=== PATIENT | female | born 2005 | race Caucasian/White ===

== ENCOUNTER 2024-03-29 20:25 | Emergency (ER) | payer OTHER, SELFPAY ==
--- NOTE | ~2024-03-29 | XR_ITS ---
CHEST RADIOGRAPH CLINICAL HISTORY: Chronic cough . COMPARISON: None available TECHNIQUE: Single portable view of the chest. FINDINGS The cardiomediastinal silhouette is unremarkable. The lungs are clear. Visualized osseous structures and soft tissues are unremarkable. IMPRESSION: No focal infiltrate or effusion. Reviewed, dictated and finalized at location A. CLIPPER
[2024-03-29 20:29] VITALS: BP 158/108; PULSE 80; RESP 18; TEMP 36.5; O2SAT 99
--- NOTE | 2024-03-29 20:30 | ED_ITS ---
HPI - URI/Sore Throat General Chief Complaint: Upper Respiratory Infection Stated Complaint: upper respiratory Time Seen by Provider: 03/29/24 20:29 Source: patient and family Mode of arrival: ambulatory Limitations: no limitations History of Present Illness HPI Narrative: 19-year-old female presents to the ED with a 2 week history of -- cough which is productive of mucoid sputum -- intermittent vomiting. No fever or chills. No chest pain or shortness of breath. No sore throat. No nasal congestion. Patient's brother had similar symptoms which did not respond to antibiotics. Subsequently he received breathing treatments and steroids with resolution of symptoms. MD elicited complaint: cough Onset (ago): week(s) ( Two weeks) Consistency: constant Description of mucous: clear Able to tolerate fluids by mouth: No Exacerbating factors: nothing Relieving factors: nothing Associated symptoms: vomiting and diarrhea Treatments prior to arrival: none Related Data Allergies Allergy/AdvReac Type Severity Reaction Status Date / Time No Known Allergies Allergy Verified 03/29/24 20:50 Review of Systems Review of Systems: All systems reviewed & are unremarkable except as noted in HPI and below Constitutional: Constitutional: Reports as per HPI and Reports no additional constitutional complaints Eyes: Eyes: Reports as per HPI and Reports no additional eye complaints ENT: Reports system reviewed and no additional complaints, except as documented and Reports as per HPI Cardiovascular: Cardiovascular: Reports as per HPI and Reports no additional cardiovascular complaints Respiratory: Respiratory: Reports as per HPI, Reports no additional respiratory complaints and Reports cough Gastrointestinal: Gastrointestinal: Reports as per HPI, Reports no additional gastrointestinal complaints, Reports diarrhea, Reports nausea and Reports vomiting Genitourinary: Genitourinary: Reports no additional female genitourinary complaints Comments: patient stated that she is not sexually active and does not think that urine pregnancies necessary. Musculoskeletal: Musculoskeletal: Reports no additional musculoskeletal complaints and Reports as per HPI Integumentary/Breasts: Skin/Breast: Reports system reviewed and no additional complaints, except as docu and Reports as per HPI Neurologic: Reports system reviewed and no additional complaints, except as documented and Reports as per HPI Psychiatric: Psychiatric: Reports no additional psychiatric complaints and Reports as per HPI Endocrine: Endocrine: Reports no additional endocrine complaints and Reports as per HPI Hematologic/Lymphatic: Hematologic/Lymphatic: Reports no additional hematologic/lymphatic complaints and Reports as per HPI Allergic/Immunologic: Allergic/Immunologic: Reports no additional allergic/immunologic complaints and Reports as per HPI Exam Narrative: Blood pressure is 158/108 afebrile with. With a respiratory rate of 18. Oxygen saturation of 99% on room air. Const: General: no acute distress Nutritional Appearance: well nourished Orientation/consciousness: patient oriented x3 Limitations: no limitations HENMT: Head: normal to inspection Ears: external ears normal Face/Nose/Sinus: Normal external nose present Face and sinus: normal facial exam Mouth: Yes Normal oral and palatal mucosa present Throat: posterior oropharynx normal Eyes: Conjunctivae: conjunctivae normal Pupils: Equal, round and reactive pupils present EOM: EOMs intact bilaterally Direct Ophthalmoscopy: no photophobia Neck: Neck: normal visual inspection, no lymphadenopathy and no meningeal signs Chest: Chest palpation & inspection: normal inspection of the chest Resp: Effort & Inspection: normal respiratory effort Auscultation: clear to auscultation bilaterally Cardio: Rate: regular rate Rhythm: regular rhythm GI: GI Palp: Yes Soft to palpation Auscultation: normal bowel sounds Other: No tenderness/rigidity /rebound. : General: Yes no CVA tenderness Back/Spine/Pelvis: Back: no CVA tenderness Skin: General skin exam: normal color Rashes: no rashes Neuro: General: patient oriented x3, moves all extremities, no meningeal signs, no focal motor deficits and CN's II-XI intact bilaterally Cranial nerves: Yes Nystagmus not present Speech: normal speech Extrem: General: normal to inspection and no clubbing, cyanosis or edema Psych: Mental Status: mental status grossly normal Affect: normal affect Attitude: cooperative Course Course Emergency Course: nonproductive cough a negative strep/RSV/ COVID/influenza and a negative chest x-ray. patient received DuoNeb treatment and Solu-Medrol 40 with remarkable improvement of her cough. Vital Signs Vital signs: Vital Signs Oxygen Delivery Room Air 03/29/24 20:25 Temperature 36.5 C 03/29/24 20:29 Pulse Rate 89 03/29/24 21:31 Respiratory Rate 198 H 03/29/24 21:31 Blood Pressure 139/89 03/29/24 21:31 Pulse Oximetry 97 03/29/24 21:31 Oxygen Delivery Room Air 03/29/24 21:31 Procedures Laceration Laceration 1: Site: other ( right sole) ====== Skin Level ====== ====== Subcutaneous Layer ====== ====== Muscle Layer ====== ====== Tendon Layer ====== MDM - URI/Sore Throat MDM Narrative Medical decision making narrative: Allergic bronchitis Differential Diagnosis Differential diagnosis: Likely bronchitis Medical Records Attestation: I reviewed the patient's medical records. Lab Data Attestation: I reviewed the patient's lab results. 03/29/24 21:00 03/29/24 21:00 Labs: Lab Results 03/29/24 03/29/24 Range/Units 21:00 21:40 WBC 10.2 (4.8-10.8) K/mm3 RBC 5.17 (4.20-5.40) M/mm3 Hgb 13.4 (12.0-15.0) g/dL Hct 40.9 (35.0-49.0) % MCV 79.1 (78.0-102.0) fL MCH 25.9 L (27.0-31.0) pg MCHC 32.8 (32-36) g/dL RDW 12.7 (11.6-14.4) % Plt Count 315 (150-420) K/mm3 MPV 10.1 (9.2-11.8) fl Immature Gran % (Auto) 0.4 H (0.0-0.0) % Neut % (Auto) 52.6 (50.0-70.0) % Lymph % (Auto) 39.1 (18.0-42.0) % [place] % (Auto) 6.7 (2.0-11.0) % Eos % (Auto) 0.6 L (1.0-6.0) % Baso % (Auto) 0.6 (0.0-1.0) % Lymph # (Auto) 3.98 (1.10-4.50) K/mm3 [place] # (Auto) 0.68 (0.10-0.90) K/mm3 Eos # (Auto) 0.06 (0.02-0.50) K/mm3 Baso # (Auto) 0.06 (0.00-0.10) K/mm3 Abs Immat Gran (auto) 0.04 H (0.00-0.00) K/mm3 Absolute Neuts (auto) 5.35 (1.70-7.20) K/mm3 Absolute Nucleated RBC 0.00 (0.00-0.00) K/mm3 Nucleated RBC % 0.0 (0-0.0) % Sodium 143 (136-145) mmol/L Potassium 3.5 (3.5-5.1) mmol/L Chloride 104 (98-108) mmol/L Carbon Dioxide 28 (21-32) mmol/L Anion Gap 11 (4-12) mmol/L BUN 14 (7-18) mg/dL Creatinine 0.91 (0.55-1.02) mg/dL Estim Creat Clear Calc Not Reportable Estimated GFR > 60 (59 - ) Glucose 116 H (70-99) mg/dL Calculated Osmolality 297 H (285-295) mOsm/kg Calcium 9.0 (8.5-10.1) mg/dL Total Bilirubin 0.4 (0.00-1.00) mg/dL AST 19 (15-37) U/L ALT 25 (14-59) U/L Alkaline Phosphatase 81 (46-116) U/L Total Protein 6.9 (6.4-8.2) g/dL Albumin 3.5 (3.4-5.0) g/dL Urine Color Light yellow (Yellow) Urine Appearance Clear (Clear) Urine pH 6.0 (5.0-8.0) Ur Specific [place] 1.020 (1.010-1.020) Urine Protein Negative (Negative) Urine Glucose (UA) Negative (Negative) Urine Ketones Negative (Negative) Ur Blood (Man) Negative (Negative) Urine Nitrate Negative (Negative) Urine Bilirubin Negative (Negative) Urine Urobilinogen 0.2 (0.2-1.0) mg/dL Leukocyte Esterase Rfl 2+ H (Negative) ISIDORO/UL Urine RBC 0-2 (0-2) /hpf Urine WBC 0-3 (0-3) /hpf Ur Squamous Epith Cells Few (Few) /hpf Urine Bacteria 1+ H (None) /hpf Influenza A (RT-PCR) Negative (Negative) Influenza B (RT-PCR) Negative (Negative) RSV (RT-PCR) Negative (Negative) SARS-CoV-2 RNA (RT-PCR) Negative (Negative) Discharge Plan Discharge Clinical Impression: Allergic bronchitis Qualifiers: Asthma severity: unspecified severity Asthma complication type: with acute exacerbation Qualified Code(s): J45.901 - Unspecified asthma with (acute) exacerbation Patient Disposition: Home, Self-Care Condition: Stable Instructions: Antibiotic Form, How to Use a Nebulizer (DC), Asthma Attack in Children (ED) Patient Language: Faroese Prescriptions: New prednisone 20 mg tablet 20 mg PO BID Qty: 10 0RF Follow-up/Referrals: Rex Gilmore MD [Primary Care Provider] - Time of Disposition: 22:07
--- NOTE | 2024-03-29 20:45 | PC.NURSE ---
xray at the bedside
--- NOTE | 2024-03-29 20:48 | PC.NURSE ---
xray at the bedside
--- NOTE | 2024-03-29 20:50 | PC.NURSE ---
lab at the bedside
[2024-03-29 21:04] LABS: Basophils Absolute Auto 0.06 K/mm3 (0.00-0.10); Basophils Percent Auto 0.6 % (0.0-1.0); Eosinophils Absolute Auto 0.06 K/mm3 (0.02-0.50); Eosinophils Percent Auto 0.6 % (1.0-6.0); Hematocrit 40.9 % (35.0-49.0); Hemoglobin 13.4 g/dL (12.0-15.0); Immature Granulocyte Absolute 0.04 K/mm3 (0.00-0.00); Immature Granulocyte Percent A 0.4 % (0.0-0.0); Lymphocytes Absolute Auto 3.98 K/mm3 (1.10-4.50); Lymphocytes Percent Auto 39.1 % (18.0-42.0); Mean Corpuscular HGB Conc 32.8 g/dL (32-36); Mean Corpuscular Hemoglobin 25.9 pg (27.0-31.0); Mean Corpuscular Volume 79.1 fL (78.0-102.0); Mean Platelet Volume 10.1 fl (9.2-11.8); Monocytes Absolute Auto 0.68 K/mm3 (0.10-0.90); Monocytes Percent Auto 6.7 % (2.0-11.0); Neutrophils Absolute Auto 5.35 K/mm3 (1.70-7.20); Neutrophils Percent Auto 52.6 % (50.0-70.0); Platelet Count Result 315 K/mm3 (150-420); Red Blood Count 5.17 M/mm3 (4.20-5.40); Red Cell Distribution Width 12.7 % (11.6-14.4); White Blood Count 10.2 K/mm3 (4.8-10.8)
[2024-03-29 21:20] LABS: Alanine Aminotransferase 25 U/L (14-59); Albumin Level 3.5 g/dL (3.4-5.0); Alkaline Phosphatase 81 U/L (46-116); Anion Gap 11 mmol/L (4-12); Aspartate Amino Transferase 19 U/L (15-37); Bilirubin,Total 0.4 mg/dL (0.00-1.00); Blood Urea Nitrogen 14 mg/dL (7-18); Carbon Dioxide 28 mmol/L (21-32); Chloride 104 mmol/L (98-108); Estimated Glomerular Filt Rate > 60; Glucose 116 mg/dL (70-99); Osmolality Calculated 297 mOsm/kg (285-295); Potassium 3.5 mmol/L (3.5-5.1); Sodium 143 mmol/L (136-145); Total Protein 6.9 g/dL (6.4-8.2)
[2024-03-29 21:31] VITALS: BP 139/89; PULSE 89; RESP 198; O2SAT 97
[2024-03-29 21:40] LABS: Influenza A QL RT-PCR Negative (Negative); Influenza B QL RT-PCR Negative (Negative); RSV RNA, RT-PCR Negative (Negative); SARS-CoV-2 RNA PCR Negative (Negative)
--- NOTE | 2024-03-29 21:42 | PC.NURSE ---
urine taken to the lab by chris walden
[2024-03-29 21:43] LABS: Add Urine Microscopic? YES; Appearance Urine Clear (Clear); Bilirubin Urine Negative (Negative); Blood Urine Negative (Negative); Color Urine Light Yellow (Yellow); Glucose Urine UA Negative (Negative); Ketones Urine Negative (Negative); Leukocyte Esterase Ur 2+ LEU/UL (Negative); Nitrate Urine Negative (Negative); Protein Urine Negative (Negative); Urobilinogen Urine 0.2 mg/dL (0.2-1.0)
[2024-03-29] MEDS: methylPREDNISolone SOD SUCC 125 MG VIAL 40 MG IM (21:46)
[2024-03-29] MEDS: IPRATROPIUM 0.5 MG/ALBUTEROL SULFATE 2.5 MG AMPUL.NEB 3 ML INHALATION (21:46)
[2024-03-29 21:49] LABS: Bacteria Urine 1+ /hpf; RBC Urine 0-2 /hpf (0-2); Squamous Epithelial Cell Urine Few /hpf (Few); WBC Urine 0-3 /hpf (0-3)
[2024-03-29] MEDS: ALBUTEROL SULFATE (*SP) INHALER 2 PUFF INHALATION (22:21)
--- NOTE | 2024-04-01 13:12 | PC.NURSE ---
FINAL URINE CULTURE REPORT: NO GROWTH, NO FURTHER ACTION OR TREATMENT NEEDED
== END 2024-03-29 22:30 | disposition home or self-care (01) ==
PROVIDERS: Emergency Provider Internal Medicine Critical Care Medicine; PCP Emergency Medicine
DX: J45.901 Unspecified asthma with (acute) exacerbation (principal); Z20.822 Contact with and (suspected) exposure to COVID-19
CPT/HCPCS: 36415; 71045; 80053; 81001; 85025; 87086; 87637; 96372; 99283; A9270; J2919

== ENCOUNTER 2024-04-13 20:19 | Emergency (ER) | payer OTHER, SELFPAY ==
[2024-04-13 20:19] VITALS: BP 136/89; PULSE 103; RESP 16; TEMP 36.2; O2SAT 98
--- NOTE | 2024-04-13 20:24 | PC.NURSE ---
DR LIU AT THE BEDSIDE
--- NOTE | 2024-04-13 20:27 | ED.URI ---
HPI - URI/Sore Throat General Chief Complaint: Upper Respiratory Infection Stated Complaint: Upper Respiratory Time Seen by Provider: 04/13/24 20:21 Source: patient and family Mode of arrival: ambulatory History of Present Illness HPI Narrative: this is a 19-year-old female with a cough and mild congestion with no audible wheezing no shortness of breath no fever chills does have some sinus congestion and drainage. MD elicited complaint: cough Onset (ago): week(s) Consistency: constant Severity: mild Related Data Allergies Allergy/AdvReac Type Severity Reaction Status Date / Time No Known Allergies Allergy Verified 03/29/24 20:50 Review of Systems Review of Systems: All systems reviewed & are unremarkable except as noted in HPI and below PMFSH Past Medical History Medical History Patient denies medical problems Exam Const: General: healthy appearing and no acute distress Nutritional Appearance: well nourished Orientation/consciousness: patient oriented x3 Limitations: no limitations HENMT: Head: normal to inspection Eyes: Conjunctivae: conjunctivae normal Neck: Neck: normal visual inspection Chest: Chest palpation & inspection: normal inspection of the chest Cardio: Rate: regular rate Rhythm: regular rhythm GI: GI Palp: Yes Soft to palpation Auscultation: normal bowel sounds Skin: General skin exam: normal color Rashes: no rashes Neuro: General: patient oriented x3 and moves all extremities Extrem: General: normal to inspection Course Course Emergency Course: dose of p.o. Zithromax administered for bronchial congestion. Advised to continue current medical regimen. Critical Care Time Critical Care Time Critical Care Time: No Discharge Plan Discharge Clinical Impression: Bronchitis Patient Disposition: Home, Self-Care Condition: Stable Instructions: Antibiotic Form, Acute Bronchitis (ED) Additional Instructions: take medication as prescribed and follow-up with primary as scheduled. Prescriptions: New azithromycin [Zithromax Z-Joseph] 250 mg tablet See Rx Instructions .ROUTE .COMPLEX Qty: 6 0RF Rx Instructions: For 250 mg dose pack: take 500 mg today (day 1), then 250 mg for 4 days (days 2-5) methylprednisolone [Medrol (Joseph)] 4 mg tablets,dose pack See Rx Instructions .ROUTE .COMPLEX Qty: 21 0RF Rx Instructions: for 6 days benzonatate 100 mg capsule 100 mg PO TID Qty: 20 0RF No Action prednisone 20 mg tablet 20 mg PO BID Qty: 10 0RF Follow-up/Referrals: Rex Gilmore MD [Primary Care Provider] -
--- NOTE | 2024-04-13 20:30 | PC.NURSE ---
PATIENT AND FAMILY LAUGING AND TALKING LOUD.
[2024-04-13] MEDS: AZITHROMYCIN 250 MG TABLET 500 MG PO (20:34)
[2024-04-13 21:02] VITALS: BP 130/82; PULSE 94; RESP 18; O2SAT 99
== END 2024-04-13 21:02 | disposition home or self-care (01) ==
LOC: CHSED 20:32
PROVIDERS: Emergency Provider Emergency Medicine; PCP Emergency Medicine
DX: J40 Bronchitis, not specified as acute or chronic (principal)
CPT/HCPCS: 99283; A9270

== ENCOUNTER 2024-06-18 00:15 | Emergency (ER) | payer OTHER, SELFPAY ==
[2024-06-18 00:15] VITALS: BP 141/94; PULSE 105; RESP 18; TEMP 36.4; O2SAT 100
--- NOTE | 2024-06-18 00:24 | PC.NURSE ---
DR LIU AT THE BEDSIDE
--- NOTE | 2024-06-18 00:27 | ED_ITS ---
HPI - URI/Sore Throat General Chief Complaint: Upper Respiratory Infection Stated Complaint: cough Source: patient Mode of arrival: ambulatory Limitations: no limitations History of Present Illness HPI Narrative: this is a 19-year-old female with a 3 month history of cough with nasal congestion sinus pressure frontal and maxillary sinuses with no fever chills cough is nonproductive with no audible wheezing no nausea vomiting no chest pain. MD elicited complaint: cough, nasal congestion and sinus pain Onset (ago): month(s) Consistency: intermittent Severity: mild Description of mucous: clear Related Data Allergies Allergy/AdvReac Type Severity Reaction Status Date / Time No Known Allergies Allergy Verified 06/18/24 00:24 Review of Systems Review of Systems: All systems reviewed & are unremarkable except as noted in HPI and below PMFSH Past Medical History Medical History Patient denies medical problems Exam Const: General: healthy appearing and no acute distress Nutritional Appearance: well nourished Orientation/consciousness: patient oriented x3 Limitations: no limitations HENMT: Other: Frontal or maxillary sinus tenderness of palpation Eyes: Conjunctivae: conjunctivae normal EOM: EOMs intact bilaterally Neck: Neck: normal visual inspection, no lymphadenopathy and no meningeal signs Chest: Chest palpation & inspection: normal inspection of the chest Resp: Effort & Inspection: normal respiratory effort Auscultation: clear to auscultation bilaterally Cardio: Rate: regular rate Rhythm: regular rhythm GI: GI Palp: Yes Soft to palpation Course Course Emergency Course: impression was sinus pressure with a chronic nonproductive cough for the last 3 months start on Claritin and Flonase. Vital Signs Vital signs: Vital Signs Temperature 36.4 C 06/18/24 00:15 Pulse Rate 105 H 06/18/24 00:15 Respiratory Rate 18 06/18/24 00:15 Blood Pressure 141/94 H 06/18/24 00:15 Pulse Oximetry 100 06/18/24 00:15 Oxygen Delivery Room Air 06/18/24 00:15 Temperature 36.4 C 06/18/24 00:15 Pulse Rate 105 H 06/18/24 00:15 Respiratory Rate 18 06/18/24 00:15 Blood Pressure 141/94 H 06/18/24 00:15 Pulse Oximetry 100 06/18/24 00:15 Oxygen Delivery Room Air 06/18/24 00:15 Critical Care Time Critical Care Time Critical Care Time: No Discharge Plan Discharge Clinical Impression: Sinusitis chronic, frontal Patient Disposition: Home, Self-Care Condition: Stable Instructions: Antibiotic Form, Sinusitis (ED) Additional Instructions: take medication as prescribed and follow up with primary within 1 week further evaluation treatment. Patient Language: Japanese Prescriptions: New Flonase Sensimist 27.5 mcg/actuation spray,suspension 2 spray intranasal DAILY Qty: 5.9 0RF Rx Instructions: into each nostril loratadine [Claritin] 10 mg tablet 10 mg PO DAILY Qty: 14 0RF Follow-up/Referrals: Rex Gilmore MD [Primary Care Provider] - Time of Disposition: 00:31
== END 2024-06-18 00:44 | disposition home or self-care (01) ==
PROVIDERS: Emergency Provider Emergency Medicine; PCP Emergency Medicine
DX: J32.1 Chronic frontal sinusitis (principal)
CPT/HCPCS: 99283

== ENCOUNTER 2024-08-21 21:50 | Emergency (ER) | payer OTHER, SELFPAY ==
[2024-08-21] VITALS (14 sets, daily range): BP systolic 129–153; BP diastolic 72–102; PULSE 74–96; RESP 16–26; TEMP 36.2; O2SAT 99–100
--- NOTE | ~2024-08-21 | CT_ITS ---
History: Syncope PROCEDURE: CT head without contrast. COMPARISON: None TECHNIQUE: Axial imaging of the head performed from the skull base to the vertex without IV contrast. Sagittal a nd coronal reformations obtained. DLP: 605 mGy-cm FINDINGS: The ventricles are normal in size, shape and position. There is no mass, mass effect or midline shift. There is no abnormal extra-axial fluid collection or intracranial hemorrhage. Visualized paranasal sinuses are clear. The mastoid air cells are well aerated. No acute displaced fractures within the overlying cranium. Impression: No acute intracranial hemorrhage or suspicious mass effect. Reviewed, dictated and finalized at location A. Impression: No acute intracranial hemorrhage or suspicious mass effect.
--- NOTE | ~2024-08-21 | XR_ITS ---
CHEST RADIOGRAPH CLINICAL HISTORY: Syncope . COMPARISON: 03/29/2024 TECHNIQUE: Single portable view of the chest. FINDINGS The cardiomediastinal silhouette is unremarkable. The lungs are clear. IMPRESSION: No focal infiltrate or effusion. Reviewed, dictated and finalized at location A.
--- NOTE | 2024-08-21 22:14 | ED_ITS ---
HPI - Syncope General Chief Complaint: Syncope Stated Complaint: passing out Time Seen by Provider: 08/21/24 21:58 Source: patient and family Mode of arrival: ambulatory Limitations: no limitations History of Present Illness HPI narrative: 19 years old white female came by private car with her mom from home with syncope. Patient's mom reports that patient had syncope 4 times over the last 3 hours. Each time patient pass out for at least 2 minutes then back to normal. Patient asked her mom why I am keep passing out. Currently patient is asymptomatic Patient denies any fever, chills, nausea, vomiting, headache, chest pain, shortness of breath, back pain, abdominal pain, urinary symptoms, vaginal bleeding or discharge or similar symptoms in the past. Related Data Allergies Allergy/AdvReac Type Severity Reaction Status Date / Time No Known Allergies Allergy Verified 08/21/24 21:55 Review of Systems Review of Systems: All systems reviewed & are unremarkable except as noted in HPI and below PMFSH Past Medical History Medical History Patient denies medical problems Exam Narrative: General appearance: Well-developed, well-nourished Skin: Normal color Head: Normocephalic, nontraumatic Eyes: Clear conjunctiva ENT: Oropharynx normal, ears normal, nose normal Neck: Supple, nontender Chest and respiratory: Airway patent, no respiratory distress, no accessory muscle use Heart: Regular rate/rhythm Abdomen: Soft, nontender, no organomegaly, quiet bowel sounds Vascular: Normal peripheral pulses, normal capillary refill. Musculoskeletal: Normal range of motion, nontender back Neurologic: Alert and oriented ?3, [employer] is normal as tested, no gross motor deficit Course Vital Signs Vital signs: Vital Signs Pulse Rate 79 08/21/24 21:50 Temperature 36.2 C L 08/21/24 21:51 Pulse Rate 74 08/21/24 21:51 Respiratory Rate 18 08/21/24 21:51 Blood Pressure 142/85 H 08/21/24 21:51 Pulse Oximetry 100 08/21/24 21:51 Oxygen Delivery Room Air 08/21/24 21:51 MDM - Syncope MDM Narrative Medical decision making narrative: Patient came to the ED with passing out at least 4 times over the last 3 hours prior to arrival. Vital signs showing blood pressure 142/85 otherwise within normal limit Physical examination is unremarkable Differential diagnosis include anxiety like symptoms, orthostatic hypotension, cardiac arrhythmia, seizure like activities, underlying heart condition, certain medications/ patient is not on any medicines Blood workup today includes CBC, CMP, TSH, alcohol level, showed insignificant abnormality Urine drug screen showed insignificant abnormalities Urinalysis showed no evidence of infection CT head without contrast showed no acute abnormality Chest x-ray showed no acute abnormalities Patient declined hospitalization and would like to sign AMA I declare that I have personally explained to the patient the risks and consequences involved in leaving this facility at this time. the benefits of continued treatment and/or hospitalization. And the alternatives. If any. to continued treatment and/or hospitalization. if applicable.I have not identified any psychosis, drugs, mental illness, or medical illness that alters decision- making capacity (reasoning abilities ). Differential Diagnosis Differential diagnosis: Likely other ( as above) Medical Records Attestation: I reviewed the patient's medical records. Lab Data Attestation: I reviewed the patient's lab results. ECG Data EKG #1: Attestation: I personally reviewed and interpreted this ECG as follows: ECG completion date: 08/21/24 Interpretation: normal sinus rhythm at 77 beats per minute, poor R-wave progression, abnormal EKG Critical Care Time Critical Care Time Critical Care Time: No Discharge Plan Discharge Clinical Impression: Syncope Patient Disposition: Left Against Medical Advice Condition: Guarded Prognosis Patient Language: Indonesian Follow-up/Referrals: Rex Gilmore MD [Primary Care Provider] -
--- NOTE | 2024-08-21 22:14 | ECG_ITS ---
Test Date: 2024-08-21 22:22:40 Measurements Intervals [place] Rate: 77 P: 22 ME: 145 QRS: 15 QRSD: 90 T: 10 QT: 341 QTc: 388 Interpretive Statements SINUS RHYTHM WITH MARKED SINUS ARRHYTHMIA BASELINE ARTIFACT- I, II, III, AVR, AVL, AVF, V4-V6 NORMAL ECG No previous ECG available for comparison Electronically Signed On 08-22-2024 06:17:20 CDT by Hilton Monet D.O.
[2024-08-21 22:38] LABS: Add Urine Microscopic? YES; Appearance Urine Clear (Clear); Bilirubin Urine Negative (Negative); Blood Urine Negative (Negative); Color Urine Light Yellow (Yellow); Glucose Urine UA Negative (Negative); Ketones Urine Negative (Negative); Leukocyte Esterase Ur 2+ LEU/UL (Negative); Nitrate Urine Negative (Negative); Protein Urine Negative (Negative); Urobilinogen Urine 0.2 mg/dL (0.2-1.0)
[2024-08-21 22:39] LABS: Basophils Absolute Auto 0.08 K/mm3 (0.00-0.10); Basophils Percent Auto 0.9 % (0.0-1.0); Eosinophils Absolute Auto 0.09 K/mm3 (0.02-0.50); Hemoglobin 13.7 g/dL (12.0-15.0); Immature Granulocyte Absolute 0.02 K/mm3 (0.00-0.00); Immature Granulocyte Percent A 0.2 % (0.0-0.0); Lymphocytes Absolute Auto 2.33 K/mm3 (1.10-4.50); Lymphocytes Percent Auto 25.8 % (18.0-42.0); Mean Corpuscular HGB Conc 32.6 g/dL (32-36); Mean Corpuscular Hemoglobin 25.8 pg (27.0-31.0); Mean Corpuscular Volume 79.1 fL (78.0-102.0); Mean Platelet Volume 10.8 fl (9.2-11.8); Monocytes Absolute Auto 0.51 K/mm3 (0.10-0.90); Monocytes Percent Auto 5.6 % (2.0-11.0); Neutrophils Percent Auto 66.5 % (50.0-70.0); Platelet Count Result 262 K/mm3 (150-420); Red Blood Count 5.31 M/mm3 (4.20-5.40); Red Cell Distribution Width 12.7 % (11.6-14.4)
--- NOTE | 2024-08-21 22:45 | PC.NURSE ---
ERP aware of pt's vitals. No new orders.
[2024-08-21 22:46] LABS: Pregnancy On Board Control Positive; Urine Pregnancy Test Negative
[2024-08-21 22:49] LABS: Amphetamine Screen Urine Negative (Negative); Barbiturate Screen Urine Negative (Negative); Benzodiazepines Screen Urine Negative (Negative); Cannabinoid Screen Urine Negative (Negative); Cocaine Screen Urine Negative (Negative); Methadone Screen Urine Negative (Negative); Opiate Screen Urine Negative (Negative); Phencyclidine Screen Urine Negative (Negative)
[2024-08-21 22:51] LABS: Bacteria Urine Trace /hpf; RBC Urine 0-2 /hpf (0-2); Squamous Epithelial Cell Urine Few /hpf (Few)
[2024-08-21 23:02] LABS: Alanine Aminotransferase 31 U/L (14-59); Albumin Level 4.3 g/dL (3.4-5.0); Alkaline Phosphatase 107 U/L (46-116); Anion Gap 10 mmol/L (4-12); Aspartate Amino Transferase 15 U/L (15-37); Bilirubin,Total 0.4 mg/dL (0.00-1.00); Blood Urea Nitrogen 14 mg/dL (7-18); Calcium 9.6 mg/dL (8.5-10.1); Carbon Dioxide 27 mmol/L (21-32); Chloride 103 mmol/L (98-108); Estimated Glomerular Filt Rate > 60; Glucose 111 mg/dL (70-99); Osmolality Calculated 291 mOsm/kg (285-295); Potassium 4.5 mmol/L (3.5-5.1); Sodium 140 mmol/L (136-145); Thyroid Stimulating Hormone 4.07 uIU/mL (0.36-3.74); Total Protein 8.1 g/dL (6.4-8.2)
[2024-08-21 23:08] LABS: Ethanol < 3 mg/dL (0-6)
--- NOTE | 2024-08-24 12:25 | PC.NURSE ---
Final urine culture report; mixed genital verónica isolated, no further organism identified. no further action or treatment needed per ERP. Dr. Odom.
== END 2024-08-21 23:30 | disposition left against medical advice (07) ==
PROVIDERS: Emergency Provider Emergency Medicine; PCP Emergency Medicine
DX: R55 Syncope and collapse (principal)
CPT/HCPCS: 36415; 70450; 71045; 80053; 80307; 81001; 81025; 82077; 84443; 85025; 87086; 93005; 99284

== ENCOUNTER 2024-12-05 14:38 | Emergency (ER) | payer OTHER, SELFPAY ==
[2024-12-05 14:38] VITALS: BP 135/94; PULSE 64; RESP 16; TEMP 36.7; O2SAT 98
--- NOTE | 2024-12-05 14:52 | ED.SKABFB ---
HPI - Skin/Abscess/Foreign Bdy General Chief complaint: Skin/Abscess/Foreign Body Stated complaint: wound behind right ear Time Seen by Provider: 12/05/24 14:52 Source: patient and family Mode of arrival: ambulatory Limitations: no limitations History of Present Illness HPI narrative: Patient is a 19-year-old female with a right posterior neck wound over the past 3 days. Patient has been picking at the area and trying to pop the skin with her friends. They used a sharp object to work at this area over the last couple days. Shots are up-to-date. complaint: abscess/boil Onset (ago): day(s) ( Three) Tetanus up to date: yes Location: neck ( right posterior) Severity: mild Severity scale (1-10): 3 Quality: burning and sharp Pain Consistency: constant Relieving factors: none Exacerbating factors: palpation and movement Context: other ( patient has a right posterior neck rash / wound over the past 3 days with pain and attempted to repair on her own at home) Associated symptoms: denies other symptoms Treatments prior to arrival: attempted to drain pus at home Related Data Allergies Allergy/AdvReac Type Severity Reaction Status Date / Time No Known Allergies Allergy Verified 12/05/24 14:50 Review of Systems Review of Systems: All systems reviewed & are unremarkable except as noted in HPI and below Constitutional: Constitutional: Reports no additional constitutional complaints Eyes: Eyes: Reports no additional eye complaints ENT: Reports system reviewed and no additional complaints, except as documented Cardiovascular: Cardiovascular: Reports no additional cardiovascular complaints Respiratory: Respiratory: Reports no additional respiratory complaints Gastrointestinal: Gastrointestinal: Reports no additional gastrointestinal complaints Genitourinary: Genitourinary: Reports no additional female genitourinary complaints Musculoskeletal: Musculoskeletal: Reports no additional musculoskeletal complaints Integumentary/Breasts: Skin/Breast: Reports system reviewed and no additional complaints, except as docu Neurologic: Reports system reviewed and no additional complaints, except as documented Psychiatric: Psychiatric: Reports no additional psychiatric complaints Endocrine: Endocrine: Reports no additional endocrine complaints Hematologic/Lymphatic: Hematologic/Lymphatic: Reports no additional hematologic/lymphatic complaints Allergic/Immunologic: Allergic/Immunologic: Reports no additional allergic/immunologic complaints PMFSH Past Medical History Medical History Patient denies medical problems Exam Const: General: healthy appearing Nutritional Appearance: well nourished Orientation/consciousness: patient oriented x3 HENMT: Head: normal to inspection Ears: external ears normal Face/Nose/Sinus: Normal external nose present Eyes: Conjunctivae: conjunctivae normal Pupils: Equal, round and reactive pupils present EOM: EOMs intact bilaterally Neck: Neck: normal visual inspection Chest: Chest palpation & inspection: normal inspection of the chest Resp: Effort & Inspection: normal respiratory effort and not labored Auscultation: clear to auscultation bilaterally and no crackles Cardio: Rate: regular rate Rhythm: regular rhythm Heart sounds: no murmurs GI: Inspection: non-distended GI Palp: Yes Soft to palpation and No Tenderness to palpation present (GI) Auscultation: normal bowel sounds : General: Yes bladder normal to palpation Back/Spine/Pelvis: Back: no CVA tenderness Skin: General skin exam: normal color Rashes: no rashes Wounds: wound noted Other: right posterior neck somewhat lateral has a 0.5 cm nidus of infection with a follicular appearance and localized erythema minimally; node deep abscess for drainage and minimal signs of cellulitis Neuro: General: patient oriented x3 Cranial nerves: Yes Nystagmus not present Speech: normal speech Extrem: General: normal to inspection Psych: Mental Status: mental status grossly normal Affect: normal affect Attitude: cooperative Course Vital Signs Vital signs: Vital Signs Temperature 36.7 C 12/05/24 14:38 Pulse Rate 64 12/05/24 14:38 Respiratory Rate 16 12/05/24 14:38 Blood Pressure 135/94 H 12/05/24 14:38 Pulse Oximetry 98 12/05/24 14:38 Oxygen Delivery Room Air 12/05/24 14:38 Temperature 36.7 C 12/05/24 14:38 Pulse Rate 64 12/05/24 14:38 Respiratory Rate 16 12/05/24 14:38 Blood Pressure 135/94 H 12/05/24 14:38 Pulse Oximetry 98 12/05/24 14:38 Oxygen Delivery Room Air 12/05/24 14:38 MDM - Skin/Abscess/Foreign Bdy MDM Narrative Medical decision making narrative: patient is a 19-year-old female with a right posterior neck cellulitis/ folliculitis for the past 3 days. We will do Bactrim and Bactroban. Discharge Plan Discharge Clinical Impression: Folliculitis Cellulitis Qualifiers: Site of cellulitis: neck Qualified Code(s): L03.221 - Cellulitis of neck Patient Disposition: Home Condition: Stable Instructions: Antibiotic Form, Folliculitis (ED) Patient Language: Slovak Prescriptions: New sulfamethoxazole-trimethoprim [Bactrim DS] 800-160 mg tablet 1 tablet PO BID 7 Days Qty: 14 0RF mupirocin [Centany] 2 % ointment 1 applic topical BID Qty: 15 0RF Follow-up/Referrals: Rex Gilmore MD [Primary Care Provider] - Time of Disposition: 15:25
--- OUTSIDE RECORDS SUMMARY | 2024-12-05 15:19 | XMS_ITS | Continuity of Care Document ---
Author Organization [facility] Address [address] [address] [place] [address] Phone Care Team Providers Care Senior Grants Officer Name Role Phone Rex Gilmore MD Unavailable Unavailable Allergies, Adverse Reactions, Alerts Substance Reaction Status Criticality No Known Allergies Active No Inform ation Medications Medication Instructions Dosage Effective Dates (start - stop) Status Comments Synthroid 25 mcg tablet take 1 tablet by oral route every day 25 MCG - Active Synthroid 50 mcg tablet take 1 tablet by oral route every day 50 MCG - Active Procedures Procedure Date OFFICE/OUTPATIENT VISIT, EST OFFICE/OUTPATIENT VISIT, EST PREV VISIT, EST, AGE 18-39 PREV VISIT, EST, AGE 12-17 PREV VISIT, NEW, AGE 12-17 Advance Directives Directive Yes / No Effective Date File Name No Information Encounters Encounter Description Practice Location Reason(s) For Visit Diagnoses Date Provider Providers Copied on Encounter [facility], [address] [place], [id number], [place] tel:[phone] [facility] No Information Mando Goodman. [address], [address] [place], [place], [address] , [place]. tel:[phone] Referring Provider: Rex Gilmore, [address], [place], [place], [address]. tel:[phone] OFFICE/OUTPA TIENT VISIT, EST [facility], [address], [place], [place], [address], [place] tel:[phone] [facility] Medicine thyroid1 (chief complaint) HLP (chief complaint) HypothyroidismMixed hyperlipidemiaHyper glycemiaOther disorders of phosphorus metabolismProteinur ia 5 Mando Goodman. [address], [address], [place], [place], [address] , [place]. tel:[phone] Referring Provider: Rex Gilmore, [address], [place], [place], [address]. tel:[phone] OFFICE/OUTPA TIENT VISIT, EST [facility], [address], [place], [place], [address], [place] tel:[phone] [facility] Medicine thyroid1 (chief complaint) glucose (chief complaint) syncope1 (chief complaint) HypothyroidismHyper glycemiaSyncope and collapseAbnormal weight gain 5 Mando Goodman. [address], [address], [place], [place], [address] , [place]. tel:[phone] Referring Provider: Rex Gilmore, [address], [place], [place], [address]. tel:[phone] PREV VISIT, EST, AGE 18-39 [facility], [address], [place], [place], [address], [place] tel:[phone] [facility] Family Medicine physical (chief complaint) Encounter for general adult medical examination without abnormal findings 4 Mando Solomon [address], [address], [place], [place], [address] , [place]. tel:[phone] Referring Provider: Rex Gilmore, [address], [place], [place], [address]. tel:[phone] PREV VISIT, EST, AGE 12-17 [facility], [address], [place], [place], [address], [place] tel:[phone] [facility] Medicine physical (chief complaint) Encounter for routine child health examination without abnormal findings 1 Mando Solomon [address], [place], [place], [address] , [place]. tel:[phone] Referring Provider: Rex Gilmore, [address], [place], [place], [address]. tel:[phone] PREV VISIT, NEW, AGE 12-17 [facility], [address], [place], [place], [address], [place] tel:[phone] [facility] PHysical (chief complaint) Encntr for routine child health exam w/o abnormal findings 8 Mando Goodman. [address], [place], [place], [address] , [place]. tel:[phone] Referring Provider: Rex Gilmore, [address] Garcia [facility] A, [place], [place], [address]. tel:[phone] Family History Family Member Type Diagnosis Age At Onset Mother Problem (finding) Alive and well Father Problem (finding) Alive and well Sister Problem (finding) Alive and well Payers Payer name Insurance type Covered republican ID Authoriza tifara(s) [facility] CI [id number] Social History Type Description Quantity Date Captured Comments Sex Female Smoking Status No Information Chief Complaint And Reason For Visit No Information Plan Of Treatment Date Type Action Status Referral Ordered: US THYROID ordered History Of Present Illness Encounter Date Complaint History Of Prese nt Illness thyroid1 Pt has persisten t low thyroid. Her thyroglobulin is mildly elevated. pt denies any dysphagia or neck pain HLP Pt has HLP. Pt i s obese pt is not on any diet. Her glucose and phos are mildly high. Pt has mild proteinuria thyroid1 Pt has mild low thyroid. Pt denies any dysphagia or neck pain. pt is obese with mood face appearance. glucose Pt has mild high glucose. Pt denies any polyuria, polydipsia. syncope1 Pt recently went to ER due to multiple syncope episodes Pt did not have any seizure activity pre mom. Pt denies any chest pain or palpitation or sob .Pt had negative lab and head CT in ER Pt left ER AMA physical Pt needs annual physical pt has persistent productive cough with clear phlegm x one month Pt denies any chest pain, sob. Pt went to Er last month and she received steroid, z jonathan and tessalon which did not help very much. Pt denies any fever. Pt denies any ear pain, sore throat, sinus symptoms. Pt denies any other complaints. She also had negative chest x ray. physical Pt needs annual physical. P is home schooled. Pt recently went to health department and got all her shot updated including Menactra booster. Pt has chronic learning and speech developmental delay. Pt will enroll in regular school next month . Pt is overweight. pt does have very good appetite. pt denies any other complaints. PHysical Pt needs annual physical. P is home schooled. Pt is not sure about her shot records. pt has not seen her previous MD for long time. Pt [facility] shot [facility]. Pt doing ok at home and mom states that she is doing fine academically Pt is overweight. pt does have very good appetite. pt denies any other complaints. Pt is on her period now Instructions Date Instruction Additional Infor mation Obesity diet education Related t o Body mass index (BMI) 32.0-32.9, adult Weight management Related to Enc ntr for routine child health exam w/o abnormal findings Increase physical activity Relat ed to Encntr for routine child health exam w/o abnormal findings Assessments Type Assessment Date No Information
--- OUTSIDE RECORDS SUMMARY | 2024-12-05 15:19 | XMS_ITS | Clinical Summary ---
Author Organization [facility] Address [address] [place] [address] Phone Care Team Providers Care Websphere Developer Name Role Phone Rex Gilmore Primary Care Provider [phone] Medications No known medications Social History Tobacco Use Types Packs/Day Years Used Date Smoking Tobacco: Never Smokeless Tobacco: Never Tobacco Cessation:Counseling Given: Not Answered Comments Unknown Sex and Gender Information Value Date Recorded Sex Assigned at Not on file Legal Sex Female 11:30 PM CDT Gender Identity Not on file Sexual Orientation Not on file Last Filed Vital Signs Vital Sign Reading Time Taken Comments Blood Pressure 132/94 08/23/2024 12:26 PM CDT Pulse 77 08/23/2024 12:26 PM CDT Temperature 37.1 C (98.7 F) 08/23/2024 11:17 AM CDT Respiratory Rate 14 08/23/2024 12:2 6 PM CDT Oxygen Saturation 98% 08/23/2024 12: 26 PM CDT Inhaled Oxygen Concentration - - Weight 88.3 kg (194 lb 10.7 oz) 025 11:17 AM CDT Height 147.3 cm (4' 10) 08/23/2024 11: 17 AM CDT Body Mass Index 40.69 08/23/2024 11:17 AM CDT Plan of Treatment Not on file Insurance MEDICAID [employer] Care Teams Websphere Developer Relationship Specialty Start Date End Date Rex Gilmore [address] [place] [address] PCP - General Family Medicine 08/23/24
== END 2024-12-05 15:28 | disposition home or self-care (01) ==
PROVIDERS: Emergency Provider Emergency Medicine; PCP Emergency Medicine
DX: L03.221 Cellulitis of neck (principal); L73.9 Follicular disorder, unspecified
CPT/HCPCS: 99283

== ENCOUNTER 2024-12-09 14:57 | Emergency (ER) | payer OTHER, SELFPAY ==
[2024-12-09 14:59] VITALS: BP 140/92; PULSE 79; RESP 16; TEMP 36.5; O2SAT 100
--- OUTSIDE RECORDS SUMMARY | 2024-12-09 15:00 | XMS_ITS | Clinical Summary ---
Author Organization [facility] Address [address] [place] [address] Phone Care Team Providers Care Ged Teacher Name Role Phone Rex Gilmore Primary Care Provider [phone] Medications No known medications Social History Tobacco [...] Insurance MEDICAID [employer] Care Teams Ged Teacher Relationship Specialty Start Date End Date Rex Gilmore [address] [place] [address] PCP - General Family Medicine 08/23/24
--- OUTSIDE RECORDS SUMMARY | 2024-12-09 15:00 | XMS_ITS | Continuity of Care Document ---
Author Organization [facility] Address [address] [place] [address] Phone Care Team Providers Care Breastfeeding Educator Name Role Phone Rex Gilmore MD Unavailable Unavailable Allergies, Adverse Reactions, Alerts Substance Reaction Status Criticality No Known Allergies Active No Inform ation Medications Medication Instructions Dosage Effective Dates (start - stop) Status Comments Synthroid 50 mcg tablet take 1 tablet by oral route every day 50 MCG - Active Synthroid 25 mcg tablet take 1 tablet by oral route every day 25 MCG - Active Procedures Procedure Date OFFICE/OUTPATIENT VISIT, EST OFFICE/OUTPATIENT VISIT, EST PREV VISIT, EST, AGE 18-39 PREV VISIT, EST, AGE 12-17 PREV VISIT, NEW, AGE 12-17 Advance Directives Directive Yes / No Effective Date File Name No Information Encounters Encounter Description Practice Location Reason(s) For Visit Diagnoses Date Provider Providers Copied on Encounter [facility], [address] [place], [place], [address], [place] tel:[phone] [facility] No Information Mando Goodman. [address] [place], [address] , [place]. tel:[phone] Referring Provider: Rex Gilmore, [address], [place], [place], [address]. tel:[phone] OFFICE/OUTPA TIENT VISIT, EST [facility], [address], [place], [place], [address], [place] tel:[phone] [facility] Medicine thyroid1 (chief complaint) HLP (chief complaint) HypothyroidismMixed hyperlipidemiaHyper glycemiaOther disorders of phosphorus metabolismProteinur ia 5 Mando Goodman. [address], [place], [place], [address] , [place]. tel:[phone] Referring Provider: Rex Gilmore, [address], [place], [place], [address]. tel:[phone] OFFICE/OUTPA TIENT VISIT, EST [facility], [address], [place], [place], [address], [place] tel:[phone] [facility] Medicine thyroid1 (chief complaint) glucose (chief complaint) syncope1 (chief complaint) HypothyroidismHyper glycemiaSyncope and collapseAbnormal weight gain 5 Mando Goodman. [address], [place], [place], [address] , [place]. tel:[phone] Referring Provider: Rex Gilmore, [address], [place], [place], [address]. tel:[phone] PREV VISIT, EST, AGE 18-39 [facility], [address], [place], [place], [address], [place] tel:[phone] [facility] physical (chief complaint) Encounter for general adult medical examination without abnormal findings 4 Mando Solomon [address], [place], [place], [address] , [place]. tel:[phone] Referring Provider: Rex Gilmore, [address], [place], [place], [address]. tel:[phone] PREV VISIT, EST, AGE 12-17 [facility], [address], [place], [place], [address], [place] tel:[phone] [facility] Medicine physical (chief complaint) Encounter for routine child health examination without abnormal findings 1 Mando Solomon [address], [place], [place], [address] , [place]. tel:[phone] Referring Provider: Rex Gilmore, [address], [place], [place], [address]. tel:[phone] PREV VISIT, NEW, AGE 12-17 [facility], [address], [place], [place], [address], [place] tel:[phone] [facility] PHysical (chief complaint) Encntr for routine child health exam w/o abnormal findings 8 Mando Goodman. [address], [place], [place], [address] , [place]. tel:[phone] Referring Provider: Rex Gilmore, [address] [facility] [address], [place], [place], [address]. tel:[phone] Family History Family Member Type Diagnosis Age At Onset Mother Problem (finding) Alive and well Father Problem (finding) Alive and well Sister Problem (finding) Alive and well Payers Payer name Insurance type Covered constitution party ID Authoriza tifara(s) [facility] CI [id number] Social History Type Description Quantity Date Captured [...] time. Pt usually gets her shot at [facility]. Pt doing ok at home and [...]
--- NOTE | 2024-12-09 15:26 | ED.SKABFB ---
HPI - Skin/Abscess/Foreign Bdy General Stated complaint: sore on right side of neck Time Seen by Provider: 12/09/24 15:10 Source: patient and family (mother) Mode of arrival: ambulatory Limitations: no limitations History of Present Illness HPI narrative: 19 year old female returns to the Emergency Department with mother complaining of sore spot /lesion to right side of neck. Patient was seen here 12/05 for same. Patient was diagnosis with cellulitis /follicultis and Rx Bactrim and Bacitracin. She is taking Bactrim, but mother states she did not have money to get Bacitracin. Feels not getting any better. complaint: abscess/boil Onset (ago): week(s) (1) Location: neck Relieving factors: none Exacerbating factors: none Treatments prior to arrival: antibiotic (bactrim) Related Data Allergies Allergy/AdvReac Type Severity Reaction Status Date / Time No Known Allergies Allergy Verified 12/09/24 15:29 Review of Systems Review of Systems: All systems reviewed & are unremarkable except as noted in HPI and below Constitutional: Constitutional: Reports as per HPI Eyes: Eyes: Reports as per HPI ENT: Reports system reviewed and no additional complaints, except as documented Cardiovascular: Cardiovascular: Reports as per HPI Respiratory: Respiratory: Reports as per HPI Gastrointestinal: Gastrointestinal: Reports as per HPI Genitourinary: Genitourinary: Reports no additional female genitourinary complaints Musculoskeletal: Musculoskeletal: Reports no additional musculoskeletal complaints Integumentary/Breasts: Skin/Breast: Reports system reviewed and no additional complaints, except as docu Neurologic: Reports system reviewed and no additional complaints, except as documented Psychiatric: Psychiatric: Reports no additional psychiatric complaints Endocrine: Endocrine: Reports no additional endocrine complaints Hematologic/Lymphatic: Hematologic/Lymphatic: Reports no additional hematologic/lymphatic complaints Allergic/Immunologic: Allergic/Immunologic: Reports no additional allergic/immunologic complaints PMFSH Past Medical History Medical History Patient denies medical problems Exam Const: General: healthy appearing Nutritional Appearance: well nourished Orientation/consciousness: patient oriented x3 Limitations: no limitations HENMT: Head: normal to inspection Ears: external ears normal Face/Nose/Sinus: Normal external nose present Face and sinus: normal facial exam Mouth: Yes Normal oral and palatal mucosa present Eyes: Pupils: Equal, round and reactive pupils present EOM: EOMs intact bilaterally Direct Ophthalmoscopy: no photophobia Neck: Other: raised circular erythematous lesion to right posterior neck just below ear. Appears to have soft center and cheesy substance Chest: Chest palpation & inspection: normal inspection of the chest Resp: Effort & Inspection: normal respiratory effort Cardio: Rate: regular rate GI: Inspection: non-distended GI Palp: Yes Soft to palpation Skin: General skin exam: normal color Rashes: no rashes Other: lesion to right posterior neck as described above Neuro: General: patient oriented x3 Other: grossly normal Extrem: General: normal to inspection and no clubbing, cyanosis or edema Course Vital Signs Vital signs: Vital Signs Temperature 36.5 C 12/09/24 14:59 Pulse Rate 79 12/09/24 14:59 Respiratory Rate 16 12/09/24 14:59 Blood Pressure 140/92 H 12/09/24 14:59 Pulse Oximetry 100 12/09/24 14:59 Oxygen Delivery Room Air 12/09/24 14:59 Temperature 36.5 C 12/09/24 14:59 Pulse Rate 79 12/09/24 14:59 Respiratory Rate 16 12/09/24 14:59 Blood Pressure 140/92 H 12/09/24 14:59 Pulse Oximetry 100 12/09/24 14:59 Oxygen Delivery Room Air 12/09/24 14:59 Procedures Abscess I/D neck: Date of Incision: 12/09/24 Time of Incision: 15:20 Side (if applicable): right (posterior neck) Local Anesthetic: lidocaine 1% Amount of anesthesia used (mL): 1 Technique: incised with #11 blade Amount of fluid expressed (mL): 0.5 Packing used?: none I&D Results: Pus (tiny amount) and Other (central core tissue removed) MDM - Skin/Abscess/Foreign Bdy MDM Narrative Medical decision making narrative: 19 year old female returns to the ED with right posterior neck lesion. Patient was seen here 12/05 and diagnosed with cellulitis /folliculitis. Rx Bactrim and Bacitracin. Taking oral, but mother did not pick up driver cream yet [no money]. PE: raised, erythematous, circular lesion with soft center and core Wound C&S: pending Tx: I&D, core remove, culture obtained, neosporin ointment Rx [additional Bactrim] and Instructions Discharge Plan Discharge Clinical Impression: Carbuncle and furuncle of neck Patient Disposition: Home Condition: Stable Instructions: Antibiotic Form Additional Instructions: Continue antibiotics by mouth Neosporin ointment topically 2-3x/day Tylenol, Ibuprofen and Aleve as needed Follow up Primary Care Provider next week for re-evaluation Patient Language: Canadian Prescriptions: New sulfamethoxazole-trimethoprim [Bactrim DS] 800-160 mg tablet 1 tablet PO Q12H Qty: 14 0RF No Action sulfamethoxazole-trimethoprim [Bactrim DS] 800-160 mg tablet 1 tablet PO BID 7 Days Qty: 14 0RF mupirocin [Centany] 2 % ointment 1 applic topical BID Qty: 15 0RF Follow-up/Referrals: Rex Gilmore MD [Primary Care Provider] - Time of Disposition: 15:36
[2024-12-09] MEDS: NEOMYCIN/POLYMYXIN/BACITRACIN OINTMENT PACKET 3 PACKET (15:30)
--- OUTSIDE RECORDS SUMMARY | 2024-12-09 15:34 | XMS_ITS | Continuity of Care Document ---
Author Organization [facility] Address [email or web address] [address] [place] [address] Phone Care Team Providers Care Corn Breeder Name Role Phone Rex Gilmore MD Unavailable [...] Diagnoses Date Provider Providers Copied on Encounter [facility], [address] [place], [address], [place] tel:[phone] [facility] No Information Mando Goodman. [address], [address], [address] , [place]. tel:[phone] Referring Provider: Rex Gilmore, [address], [place], [place], [address]. tel:[phone] OFFICE/OUTPA TIENT VISIT, EST [facility], [address], [place], [place], [address], [place] tel:[phone] [facility] thyroid1 (chief complaint) HLP (chief complaint) HypothyroidismMixed hyperlipidemiaHyper glycemiaOther disorders of phosphorus metabolismProteinur ia 5 Mando Goodman. [address], [place], [place], [address] , [place]. tel:[phone] Referring Provider: Rex Gilmore, [address], [place], [place], [address]. tel:[phone] OFFICE/OUTPA TIENT VISIT, EST [facility], [address], [place], [place], [address], [place] tel:[phone] [facility] thyroid1 (chief complaint) glucose (chief complaint) syncope1 (chief complaint) HypothyroidismHyper glycemiaSyncope and collapseAbnormal weight gain 5 Mando Goodman. [address], [place], [place], [address] , [place]. tel: [phone] Referring Provider: Rex Gilmore, [address], [place], [place], [address]. tel:[phone] PREV VISIT, EST, AGE 18-39 [facility], [address], [place], [place], [address], [place] tel:[phone] [facility] Medicine physical (chief complaint) Encounter for general adult medical examination without abnormal findings 4 Mando Solomon [address], [place], [place], [address] , [place]. tel:[phone] Referring Provider: Rex Gilmore, [address], [place], [place], [address]. tel:[phone] PREV VISIT, EST, AGE 12-17 [facility], [address], [place], [place], [address], [place] tel:[phone] [facility] physical (chief complaint) Encounter for routine child health examination without abnormal findings 1 Mando Solomon [address], [place], [place], [address] , [place]. tel:[phone] Referring Provider: Rex Gilmore, [address], [place], [place], [address]. tel:[phone] PREV VISIT, NEW, AGE 12-17 [facility], [address], [place], [place], [address], [place] tel:[phone] [facility] PHysical (chief complaint) Encntr for routine child health exam w/o abnormal findings 8 Mando Goodman. [address], [place], [place], [address] , [place]. tel:[phone] Referring Provider: Rex Gilmore, Faustina Garcia [facility] A, [place], [place], [address]. tel:[phone] Family History Family Member Type Diagnosis Age At Onset Mother Problem (finding) Alive and well Father Problem (finding) Alive and well Sister Problem (finding) Alive and well Payers Payer name Insurance type Covered democrat ID Authoriza tifara(s) [facility] CI [id number] Social History Type Description Quantity Date Captured [...] time. [facility] Pt doing ok at home and mom states that she is doing fine academically Pt is overweight. pt does have very good appetite. pt denies any other complaints. Pt is on her period now Instructions Date Instruction Additional Infor mation Increase physical activity Relat ed to Encntr for routine child health exam w/o abnormal findings Weight management Related to Enc ntr for routine child health exam w/o abnormal findings Obesity diet education Related t o Body mass index (BMI) 32.0-32.9, adult Assessments Type Assessment Date No Information
--- OUTSIDE RECORDS SUMMARY | 2024-12-09 15:34 | XMS_ITS | Clinical Summary ---
Author Organization [facility] Address [address] [place] [address] Phone Care Team Providers Care Inker Machine Name Role Phone Rex Gilmore Primary Care Provider [phone] Medications No known medications Social History Tobacco [...] Insurance MEDICAID [employer] Care Teams Inker Machine Relationship Specialty Start Date End Date Rex Gilmore [address] [place] [address] PCP - General Family Medicine 08/23/24
--- NOTE | 2024-12-13 12:59 | PC.NURSE ---
PRELIMINARY WOUND CULTURE FROM NECK POSITIVE FOR STAPHYLOCOCCUS AUREUS PT ON BACTRIM DS BID FOR [address] ANDERSEN WILL WAIT FOR SENSITIVITY TO MAKE ANY CHANGES
--- NOTE | 2024-12-14 12:58 | PC.NURSE ---
FINAL NECK CULTURE REPORT; STAPHYLOCOCCUS AUREUS. PATIENT DISCHARGED ON BACTRIM DS. CULTURE SUSCEPTIBLE. NO FURTHER ACTION NEEDED PER DR. HOFFMAN
== END 2024-12-09 16:00 | disposition home or self-care (01) ==
PROVIDERS: Emergency Provider Emergency Medicine; PCP Emergency Medicine
DX: L02.13 Carbuncle of neck (principal)
CPT/HCPCS: 10060; 99283

== ENCOUNTER 2024-12-18 23:00 | Emergency (ER) | payer OTHER, SELFPAY ==
[2024-12-18 23:00] VITALS: BP 122/98; PULSE 89; RESP 20; TEMP 36.7; O2SAT 98
--- OUTSIDE RECORDS SUMMARY | 2024-12-18 23:02 | XMS_ITS | Clinical Summary ---
Author Organization [facility] Address [address] [place] [address] Phone Care Team Providers Care Animal Stunner Name Role Phone Rex Gilmore Primary Care Provider [phone] Medications No known medications Social History Tobacco [...] Insurance MEDICAID [employer] Care Teams Animal Stunner Relationship Specialty Start Date End Date Rex Gilmore [address] [place] [address] PCP - General Family Medicine 08/23/24
--- OUTSIDE RECORDS SUMMARY | 2024-12-18 23:02 | XMS_ITS | Continuity of Care Document ---
Author Organization [facility] Address [address] [address] [place] [address] Phone Care Team Providers Care Employment Instructional Associate Name Role Phone Rex Gilmore MD Unavailable [...] Diagnoses Date Provider Providers Copied on Encounter [facility], [address] [place], [address], [place] tel:[phone] [facility] No Information Mando Goodman. [address], [address] [place], [address] , [place]. tel:[phone] Referring Provider: Rex Gilmore, [address], [place], [place], [address]. tel:[phone] OFFICE/OUTPA TIENT VISIT, EST [facility], [address], [place], [place], [address], [place] tel:[phone] [facility] thyroid1 (chief complaint) HLP (chief complaint) HypothyroidismMixed hyperlipidemiaHyper glycemiaOther disorders of phosphorus metabolismProteinur ia 5 Mando Goodman. [address], [place], [place], [address] , [place]. tel:[phone] Referring Provider: Rex Gilmore, [address], [place], [place], [address]. tel:[phone] OFFICE/OUTPA TIENT VISIT, EST [facility], [address], [place], [place], [address], [place] tel:[phone] [facility] thyroid1 (chief complaint) glucose (chief complaint) syncope1 (chief complaint) HypothyroidismHyper glycemiaSyncope and collapseAbnormal weight gain 5 Mando Goodman. [address], [place], [place], [address] , [place]. tel:[phone] Referring Provider: Rex Gilmore, [address], [place], [place], [address]. tel:[phone] PREV VISIT, EST, AGE 18-39 [facility], [address], [place], [place], [address], [place] tel:[phone] [facility] Medicine physical (chief complaint) Encounter for general adult medical examination without abnormal findings 4 Mando Solomon [address], [place], [place], [address] , [place]. tel:[phone] Referring Provider: Rex Gilmore, [address], [place], [place], [address]. tel:[phone] PREV VISIT, EST, AGE 12-17 [facility], [address], [place], [place], [address], [place] tel:[phone] [facility] Medicine physical (chief complaint) Encounter for routine child health examination without abnormal findings 1 Mando Solomon [address], [place], [place], [address] , [place]. tel:[phone] Referring Provider: Rex Gilmore, [address], [place], [place], [address]. tel:[phone] PREV VISIT, NEW, AGE 12-17 [facility], [address], [place], [place], [address], [place] tel:[phone] [facility] PHysical (chief complaint) Encntr for routine child health exam w/o abnormal findings 8 Mando Goodman. [address], [place], [place], [address] , [place]. tel:[phone] Referring Provider: Rex Gilmore, Faustina Gacria [facility] A, [place], [place], [address]. tel:[phone] Family History Family Member Type Diagnosis Age At Onset Mother Problem (finding) Alive and well Father Problem (finding) Alive and well Sister Problem (finding) Alive and well Payers Payer name Insurance type Covered alliance party ID Authoriza tifara(s) [facility] CI [id number] Social History Type Description Quantity Date Captured [...] time. Pt usually gets her shot at [facility]. Pt doing ok at [...]
--- NOTE | 2024-12-18 23:04 | ED_ITS ---
HPI - Skin/Abscess/Foreign Bdy General Chief complaint: Skin/Abscess/Foreign Body Stated complaint: rash Time Seen by Provider: 12/18/24 23:01 History of Present Illness HPI narrative: Pt presents with rash to trunk and arms tonight. Pt says it itches. Pt has been in heat a lot today. Pt denies new soaps medicines or detergents. Related Data Allergies Allergy/AdvReac Type Severity Reaction Status Date / Time No Known Allergies Allergy Verified 12/09/24 15:29 Review of Systems Review of Systems: All systems reviewed & are unremarkable except as noted in HPI and below PMFSH Past Medical History Medical History Patient denies medical problems Exam Const: General: healthy appearing and no acute distress Nutritional Appearance: well nourished Orientation/consciousness: patient oriented x3 Limitations: no limitations Eyes: Pupils: Equal, round and reactive pupils present EOM: EOMs intact bilaterally Resp: Effort & Inspection: normal respiratory effort Auscultation: clear to auscultation bilaterally Cardio: Rate: regular rate Rhythm: regular rhythm GI: GI Palp: Yes Soft to palpation and No Tenderness to palpation present (GI) Auscultation: normal bowel sounds Skin: Other: macular blachable rash to trunk and extremities Neuro: General: patient oriented x3, moves all extremities and no focal motor deficits MDM - Skin/Abscess/Foreign Bdy MDM Narrative Medical decision making narrative: appears to be heat type rash. will give benadryl here and a few days of p rednisone rx for tomorrow if not improved. Discharge Plan Discharge Clinical Impression: Heat rash Patient Disposition: Home Condition: Stable Instructions: Antibiotic Form, Acute Rash (ED) Patient Language: Wallisian Prescriptions: New prednisone 50 mg tablet 50 mg PO DAILY Qty: 5 0RF No Action sulfamethoxazole-trimethoprim [Bactrim DS] 800-160 mg tablet 1 tablet PO Q12H Qty: 14 0RF sulfamethoxazole-trimethoprim [Bactrim DS] 800-160 mg tablet 1 tablet PO BID 7 Days Qty: 14 0RF mupirocin [Centany] 2 % ointment 1 applic topical BID Qty: 15 0RF Follow-up/Referrals: Rex Gilmore MD [Primary Care Provider] -
[2024-12-18] MEDS: diphenhydrAMINE HCl CAP 25 MG CAPSULE 50 MG PO (23:21)
--- OUTSIDE RECORDS SUMMARY | 2024-12-18 23:28 | XMS_ITS | Continuity of Care Document ---
Author Organization [facility] Address [address] [address] Phone Care Team Providers Care Specialty Plant Supervisor Name Role Phone Rex Gilmore MD Unavailable [...] Diagnoses Date Provider Providers Copied on Encounter [facility], [address] [place], [place], [address], [place] tel:[phone] [facility] No Information Mando Goodman. [address], [address] [place], [address] , [place]. tel:[phone] Referring Provider: Rex Gilmore, [address], [place], [place], [address]. tel:[phone] OFFICE/OUTPA TIENT VISIT, EST [facility], [address], [place], [place], [address], [place] tel:[phone] [facility] thyroid1 (chief complaint) HLP (chief complaint) HypothyroidismMixed hyperlipidemiaHyper glycemiaOther disorders of phosphorus metabolismProteinur ia 5 Mando Goodman. [address], [place], [place], [address] , [place]. tel:[phone] Referring Provider: Rex Gilmore, [address], [place], [place], [address]. tel:[phone] OFFICE/OUTPA TIENT VISIT, EST [facility], [address], [place], [place], [address], [place] tel:[phone] [facility] thyroid1 (chief complaint) glucose (chief complaint) syncope1 (chief complaint) HypothyroidismHyper glycemiaSyncope and collapseAbnormal weight gain 5 Mando Goodman. [address], [place], [place], [address] , [place]. tel:[phone] Referring Provider: Rex Gilmore, [address], [place], [place], [address]. tel:[phone] PREV VISIT, EST, AGE 18-39 [facility], [address], [place], [place], [address], [place] tel:[phone] [facility] Family Medicine physical (chief complaint) Encounter for general adult medical examination without abnormal findings 4 Mando Solomon [address], [place], [place], [address] , [place]. tel:[phone] Referring Provider: Rex Gilmore, [address], [place], [place], [address]. tel:[phone] PREV VISIT, EST, AGE 12-17 [facility], [address], [place], [place], [address], [place] tel:[phone] [facility] Medicine physical (chief complaint) Encounter for routine child health examination without abnormal findings 1 Mando Solomon [address], [place], [place], [address] , [place]. tel:[phone] Referring Provider: Rex Gilmore, [address], [place], [place], [address]. tel:[phone] PREV VISIT, NEW, AGE 12-17 [facility], [address], [place], [place], [address], [place] tel:[phone] [facility] PHysical (chief complaint) Encntr for routine child health exam w/o abnormal findings 8 Mando Goodman. [address], [place], [place], [address] , [place]. tel:[phone] Referring Provider: Rex Gilmore, Faustina Garcia [facility] A, [place], [place], [address]. tel:[phone] Family History Family Member Type Diagnosis Age At Onset Mother Problem (finding) Alive and well Father Problem (finding) Alive and well Sister Problem (finding) Alive and well Payers Payer name Insurance type Covered libertarian ID Authoriza tifara(s) [facility] CI [id number] Social History Type Description Quantity Date Captured [...] time. Pt usually gets her shot at [facility]. Pt doing ok at home and mom [...]
--- OUTSIDE RECORDS SUMMARY | 2024-12-18 23:28 | XMS_ITS | Clinical Summary ---
Author Organization [facility] Address [address] [place] [address] Phone Care Team Providers Care Lining Feller Name Role Phone Rex Gilmore Primary Care Provider [phone] Medications No known medications Social History Tobacco [...] Insurance MEDICAID [employer] Care Teams Lining Feller Relationship Specialty Start Date End Date Rex Gilmore [address] [place] [address] PCP - General Family Medicine 08/23/24
== END 2024-12-18 23:28 | disposition home or self-care (01) ==
LOC: CHSED 23:26
PROVIDERS: Emergency Provider Emergency Medicine; PCP Emergency Medicine
DX: L74.0 Miliaria rubra (principal)
CPT/HCPCS: 99283; A9270

== ENCOUNTER 2025-01-10 14:14 | Emergency (ER) | payer OTHER, SELFPAY ==
[2025-01-10 14:16] VITALS: BP 155/96; PULSE 86; RESP 17; TEMP 36.6; O2SAT 100
--- NOTE | 2025-01-10 14:41 | ED_ITS ---
HPI - Ear Problem General Chief complaint: Ear Stated complaint: rt. ear pain Time Seen by Provider: 01/10/25 14:41 Source: patient Mode of arrival: ambulatory Limitations: no limitations History of Present Illness HPI Narrative: 19-year-old with hypothyroidism presents to the ED with a 2 day history of -- right ear pain. No drainage. Patient had been swimming. no fever or chills Complaint: ear pain Location: right ear Duration: constant Severity: severe Relieving factors: nothing Exacerbating factors: nothing Discharge from ear: Reports no Treatment prior to arrival: none Related Data Allergies Allergy/AdvReac Type Severity Reaction Status Date / Time No Known Allergies Allergy Verified 12/19/24 00:13 Review of Systems Review of Systems: All systems reviewed & are unremarkable except as noted in HPI and below PMFSH Past Medical History Medical History (Updated 01/10/25 @ 14:53 by Tyler Coburn MD) Hypothyroidism Patient denies medical problems Exam Narrative: blood pressure is 155/96. Const: Orientation/consciousness: patient oriented x3 Limitations: no limitations HENMT: Head: normal to inspection Ears: external ears normal, TM's normal bilaterally and EAC's normal ( Right ear canal is erythematous swollen and tender) Face/Nose/Sinus: Normal external nose present Face and sinus: normal facial exam Mouth: Yes Normal oral and palatal mucosa present Throat: posterior oropharynx normal Eyes: Conjunctivae: conjunctivae normal Pupils: Equal, round and reactive pupils present EOM: EOMs intact bilaterally Direct Ophthalmoscopy: no photophobia Neck: Neck: normal visual inspection, no lymphadenopathy and no meningeal signs Chest: Chest palpation & inspection: normal inspection of the chest Resp: Effort & Inspection: normal respiratory effort Auscultation: clear to auscultation bilaterally Cardio: Rate: regular rate Rhythm: regular rhythm GI: Other: no tenderness/ rigidity /rebound : General: Yes no CVA tenderness Back/Spine/Pelvis: Back: no CVA tenderness Skin: General skin exam: normal color Rashes: no rashes Wounds: no wounds Neuro: General: patient oriented x3, moves all extremities, no meningeal signs, no focal motor deficits and CN's II-XI intact bilaterally Speech: normal speech Extrem: General: normal to inspection and no clubbing, cyanosis or edema Psych: Mental Status: mental status grossly normal Affect: normal affect Attitude: cooperative Course Course Emergency Course: otitis externa hypertension-- advised the patient to follow up with the primary care physician. Vital Signs Vital signs: Vital Signs Temperature 36.6 C 01/10/25 14:16 Pulse Rate 86 01/10/25 14:16 Respiratory Rate 17 01/10/25 14:16 Blood Pressure 155/96 H 01/10/25 14:16 Pulse Oximetry 100 01/10/25 14:16 Oxygen Delivery Room Air 01/10/25 14:16 Temperature 36.6 C 01/10/25 14:16 Pulse Rate 86 01/10/25 14:16 Respiratory Rate 17 01/10/25 14:16 Blood Pressure 140/98 H 01/10/25 14:52 Pulse Oximetry 100 01/10/25 14:16 Oxygen Delivery Room Air 01/10/25 14:16 Medical Decision Making MDM Narrative Medical decision making narrative: Hypertension otitis externa Differential Diagnosis Differential Diagnosis: otitis media Vital Signs Vital Signs: Vital Signs Temperature 36.6 C 01/10/25 14:16 Pulse Rate 86 01/10/25 14:16 Respiratory Rate 17 01/10/25 14:16 Blood Pressure 155/96 H 01/10/25 14:16 Pulse Oximetry 100 01/10/25 14:16 Oxygen Delivery Room Air 01/10/25 14:16 Temperature 36.6 C 01/10/25 14:16 Pulse Rate 86 01/10/25 14:16 Respiratory Rate 17 01/10/25 14:16 Blood Pressure 140/98 H 01/10/25 14:52 Pulse Oximetry 100 01/10/25 14:16 Oxygen Delivery Room Air 01/10/25 14:16 Discharge Plan Discharge Clinical Impression: Otitis externa Qualifiers: Otitis externa type: unspecified type Chronicity: acute Laterality: right Qualified Code(s): H60.501 - Unspecified acute noninfective otitis externa, right ear Hypertension Qualifiers: Hypertension type: unspecified Qualified Code(s): I10 - Essential (primary) hypertension Patient Disposition: Home Condition: Stable Instructions: Antibiotic Form, Hypertension (ED) Patient Language: Slovak Prescriptions: New Cortisporin-TC 3.3-3-10-0.5 mg/mL drops,suspension 1 applic RIGHT EAR Q4H Qty: 10 0RF Rx Instructions: apply to (cotton) wick; replace wick every 24 hours sulfamethoxazole-trimethoprim [Bactrim DS] 800-160 mg tablet 1 tablet PO Q12H Qty: 14 0RF No Action sulfamethoxazole-trimethoprim [Bactrim DS] 800-160 mg tablet 1 tablet PO Q12H Qty: 14 0RF sulfamethoxazole-trimethoprim [Bactrim DS] 800-160 mg tablet 1 tablet PO BID 7 Days Qty: 14 0RF mupirocin [Centany] 2 % ointment 1 applic topical BID Qty: 15 0RF prednisone 50 mg tablet 50 mg PO DAILY Qty: 5 0RF Follow-up/Referrals: UNKNOWN,DOCTOR [Primary Care Provider]
--- OUTSIDE RECORDS SUMMARY | 2025-01-10 14:44 | XMS_ITS | Clinical Summary ---
Author Organization [facility] Address [address] [place] [address] Phone Care Team Providers Care Fish Bin Tender Name Role Phone Rex Gilmore Primary Care Provider [phone] Medications No known medications Social History Tobacco [...] Insurance MEDICAID [employer] Care Teams Fish Bin Tender Relationship Specialty Start Date End Date Rex Gilmore [address] [place] [address] PCP - General Family Medicine 08/23/24
[2025-01-10 14:52] VITALS: BP 140/98
--- OUTSIDE RECORDS SUMMARY | 2025-01-10 15:34 | XMS_ITS | Clinical Summary ---
Author Organization [facility] Address [address] [place] [address] Phone Care Team Providers Care Garage Door Installer Name Role Phone Rex Gilmore Primary Care Provider [phone] Medications No known medications Social History Tobacco [...] Insurance MEDICAID [employer] Care Teams Garage Door Installer Relationship Specialty Start Date End Date Rex Gilmore [address] [place] [address] PCP - General Family Medicine 08/23/24
== END 2025-01-10 15:16 | disposition home or self-care (01) ==
LOC: CHSED 15:03
PROVIDERS: Emergency Provider Internal Medicine Critical Care Medicine; PCP Emergency Medicine
DX: H60.501 Unspecified acute noninfective otitis externa, right ear (principal); E03.9 Hypothyroidism, unspecified
CPT/HCPCS: 99283